=== PATIENT | female | born 1980 | race Caucasian/White ===

== ENCOUNTER 2016-12-05 13:29 | Emergency (ER) | payer MEDICAID ==
[2016-12-05 13:59] LABS: BASOPHILS 0.5 % (0.0-2.0); HEMATOCRIT 39.2 % (36.0-48.0); IMMATURE GRANULOCYTES 0.2 % (0-5); MCH 31.7 pg (26.0-34.0); MCHC 33.2 g/dL (31.0-37.0); MCV 95.6 fL (80.0-100.0); MEAN PLATELET VOLUME 8.8 fL (7.4-10.4); NEUTROPHILS 62.3 % (40-80); PLATELET COUNT 226 10x3/uL (130-400); RDW 13.1 % (11.5-14.5); WBC 6.5 10x3/uL (4.8-10.8)
[2016-12-05 14:17] LABS: ALBUMIN 3.9 g/dL (3.4-5.0); ALKALINE PHOSPHATASE 63 U/L (46-116); ALT (SGPT) 19 U/L (10-68); CALC OSMOLALITY 279 mosm/kg (275-300); CALCIUM 8.8 mg/dL (8.5-10.1); CARBON DIOXIDE 24.3 mmol/L (21.0-32.0); CHLORIDE - SERUM 103 mmol/L (98-107); CREATININE - SERUM 0.7 mg/dL (0.6-1.3); GLUCOSE 98 mg/dL (74-106); POTASSIUM - SERUM 4.1 mmol/L (3.5-5.1); PROTEIN - SERUM 6.6 g/dL (6.4-8.2); SODIUM 139 mmol/L (136-145); UREA NITROGEN 19 mg/dL (7-18); eGFR NON AFRICAN AMERICAN > 90 mL/min (90-120)
[2016-12-05 15:00] LABS: UDS - AMPHET NEGATIVE QUAL (NEGATIVE); UDS - BARB NEGATIVE QUAL (NEGATIVE); UDS - BENZO NEGATIVE QUAL (NEGATIVE); UDS - COCAINE NEGATIVE QUAL (NEGATIVE); UDS - METH NEGATIVE QUAL (NEGATIVE); UDS - OPIATE NEGATIVE QUAL (NEGATIVE); UDS - PCP NEGATIVE QUAL (NEGATIVE); UDS - THC NEGATIVE QUAL (NEGATIVE)
[2016-12-05 15:02] LABS: HCG URINE NEGATIVE (NEGATIVE)
[2016-12-05 15:17] LABS: APPEARANCE CLEAR (CLEAR); BILIRUBIN NEGATIVE (NEGATIVE); COLOR YELLOW (YELLOW); GLUCOSE NEGATIVE (NEGATIVE); KETONE NEGATIVE (NEGATIVE); LEUKOCYTE ESTERASE NEGATIVE (NEGATIVE); NITRITE NEGATIVE (NEGATIVE); PROTEIN NEGATIVE (NEGATIVE); SPECIFIC GRAVITY 1.015 (1.005-1.020); UROBILINOGEN NORMAL (NORMAL)
== END 2016-12-05 18:14 | disposition home or self-care (01) ==
LOC: D.ER 13:29
PROVIDERS: Emergency Medicine
DX: R56.9 Unspecified convulsions (principal); R63.0 Anorexia; F41.9 Anxiety disorder, unspecified; F31.9 Bipolar disorder, unspecified

== ENCOUNTER 2019-05-04 13:53 | Emergency (ER) | payer BC, OTHER ==
[~2019-05-04] VITALS: Ht 182.9 cm; Wt 75.0 kg
[2019-05-04 13:58] VITALS: Ht 182.9 cm; Wt 75.0 kg
[2019-05-04] MEDS ORDERED: KEPPRA250 MG PO (14:00)
[2019-05-04 16:36] LABS: ALBUMIN 3.7 g/dL (3.4-5.0); ALKALINE PHOSPHATASE 78 U/L (46-116); ALT (SGPT) 12 U/L (10-68); BILIRUBIN - TOTAL 0.21 mg/dL (0.2-1.3); CALC OSMOLALITY 280 mosm/kg (275-300); CALCIUM 8.1 mg/dL (8.5-10.1); CARBAMAZEPINE (TEGRETOL) 10.9 ug/mL (4.0-12.0); CARBON DIOXIDE 26.1 mmol/L (21.0-32.0); CHLORIDE - SERUM 106 mmol/L (98-107); CREATININE - SERUM 0.7 mg/dL (0.6-1.3); GLUCOSE 93 mg/dL (74-106); POTASSIUM - SERUM 4.2 mmol/L (3.5-5.1); PROTEIN - SERUM 6.9 g/dL (6.4-8.2); SODIUM 140 mmol/L (136-145); UREA NITROGEN 18 mg/dL (7-18); eGFR NON AFRICAN AMERICAN > 90 mL/min (90-120)
[2019-05-04 16:43] LABS: HEMATOCRIT 38.6 % (36.0-48.0); HEMOGLOBIN 13.6 g/dL (12-16); LYMPHOCYTES 22.4 % (15-50); MCH 33.3 pg (26.0-34.0); MCHC 35.2 g/dL (31.0-37.0); MCV 94.4 fL (80.0-100.0); NEUTROPHILS 67.4 % (40-80); PLATELET COUNT 241 10x3/uL (130-400); RBC 4.09 10x6/uL (4.00-5.40); RDW 12.8 % (11.5-14.5); WBC 6.8 10x3/uL (4.8-10.8)
[2019-05-04] MEDS ORDERED: ZOLOFT50 MG PO (16:43)
[2019-05-04] MEDS ORDERED: TEGRETOL200 MG PO (16:43)
[2019-05-04] MEDS ORDERED: ZYRTEC10 MG PO (16:43)
[2019-05-04] MEDS ORDERED: RISPERDAL1 MG PO (16:44)
[2019-05-04] MEDS ORDERED: SINEQUAN100 MG PO (16:44)
[2019-05-04] MEDS ORDERED: CATAPRES0.1 MG PO (16:45)
[2019-05-04 19:18] VITALS: BP 104/47
== END 2019-05-04 18:49 | disposition home or self-care (01) ==
LOC: D.ER 13:53
PROVIDERS: Emergency Medicine
DX: G40.909 Epilepsy, unspecified, not intractable, without status epilepticus (principal)

== ENCOUNTER 2019-06-14 20:08 | Emergency (ER) | payer BC, OTHER ==
[~2019-06-14] VITALS: Ht 182.9 cm; Wt 81.8 kg
[~2019-06-14 20:08] MED LIST: CATAPRES0.1 MG PO; KEPPRA250 MG PO; RISPERDAL1 MG PO; SINEQUAN100 MG PO; TEGRETOL200 MG PO; ZOLOFT50 MG PO; ZYRTEC10 MG PO
[2019-06-14 20:53] VITALS: Ht 182.9 cm; Wt 81.8 kg
[2019-06-14] MEDS ORDERED: DOXYCYCLINE HY100 M2 PO (22:09)
[2019-06-14] MEDS ORDERED: KENALOG 0.1 % 115 GM TOPICAL (22:09)
[2019-06-14 23:13] VITALS: BP 101/55
== END 2019-06-14 23:13 | disposition home or self-care (01) ==
LOC: D.ER 20:08
DX: L73.9 Follicular disorder, unspecified (principal); R05 Cough